=== PATIENT | male | born 1960 | race Caucasian/White ===

== ENCOUNTER → 2020-10-06 | Outpatient (CLI) | payer OTHER | LOC: SJCVCIMAG | PROVIDERS: ATTEND Internal Medicine | DX: R00.2 Palpitations (principal); E78.5 Hyperlipidemia, unspecified; G47.33 Obstructive sleep apnea (adult) (pediatric); Z87.891 Personal history of nicotine dependence; Z79.899 Other long term (current) drug therapy; F12.90 Cannabis use, unspecified, uncomplicated ==

== ENCOUNTER → 2021-04-11 | Outpatient (CLI) | payer OTHER ==
[~2021-04-11] MED LIST: CHOLECALCIFEROL1 GM PO; DAILY VITAMIN1 EAC6 PO; TOPROL XL50 MG PO; XARELTO20 MG PO
[2021-04-11 09:32] LABS: ABSOLUTE NEUTROPHILS 1.9 thou/uL (1.4-8.2); BASOPHILS 0.7 % (0.0-2.0); EOSINOPHILS 1.7 % (0.0-3.0); HEMATOCRIT 42.9 % (42.0-52.0); LYMPHOCYTES 48.5 % (24.0-44.0); MCH 29.3 pg (26.0-34.0); MCHC 32.5 g/dL (28.0-37.0); MCV 90.1 fL (80.0-100.0); MONOCYTES 8.8 % (1.0-8.0); PLATELET COUNT 205 thou/uL (150-400); POLYS 40.3 % (36.0-66.0); RBC 4.76 mil/uL (4.50-6.00); RDW 13.8 % (10.5-14.5); WBC 4.7 thou/uL (4.0-11.0)
[2021-04-11 09:51] LABS: ALBUMIN 3.6 g/dL (3.4-5.0); CALCIUM 8.9 mg/dL (8.5-10.1); CREATININE 0.8 mg/dL (0.7-1.3); POTASSIUM 4.5 mmol/L (3.5-5.1); TOTAL BILIRUBIN 0.5 mg/dL (0.2-1.0); TOTAL PROTEIN 6.9 g/dL (6.4-8.2)
== END ==
LOC: CAT 08:47
PROVIDERS: ATTEND Internal Medicine Cardiovascular Disease
DX: I25.10 Atherosclerotic heart disease of native coronary artery without angina pectoris (principal); I48.91 Unspecified atrial fibrillation

== ENCOUNTER 2021-04-13 06:31 | Outpatient (CLI) | payer OTHER ==
[~2021-04-13] VITALS: Ht 182.9 cm; Wt 91.8 kg
[2021-04-13 07:39] LABS: ABSOLUTE NEUTROPHILS 1.7 thou/uL (1.4-8.2); BASOPHILS 0.6 % (0.0-2.0); EOSINOPHILS 1.7 % (0.0-3.0); HEMOGLOBIN 14.3 gm/dL (14.0-18.0); LYMPHOCYTES 51.1 % (24.0-44.0); MCH 29.4 pg (26.0-34.0); MCHC 33.3 g/dL (28.0-37.0); MCV 88.5 fL (80.0-100.0); MONOCYTES 6.6 % (1.0-8.0); PLATELET COUNT 203 thou/uL (150-400); RBC 4.86 mil/uL (4.50-6.00); RDW 13.5 % (10.5-14.5); WBC 4.2 thou/uL (4.0-11.0)
[2021-04-13 07:41] VITALS: BP 111/71
[2021-04-13 07:44] LABS: CALCIUM 8.7 mg/dL (8.5-10.1); CREATININE 0.8 mg/dL (0.7-1.3); POTASSIUM 3.9 mmol/L (3.5-5.1)
[2021-04-13 07:49] LABS: ALBUMIN 3.5 g/dL (3.4-5.0); TOTAL BILIRUBIN 0.4 mg/dL (0.2-1.0); TOTAL PROTEIN 6.8 g/dL (6.4-8.2)
[2021-04-13 07:55] LABS: APTT 29.1 Seconds (24.5-32.8); INR 0.98; PROTIME 10.7 Seconds (10.5-12.1)
[2021-04-13] MEDS ORDERED: TOPROL XL50 MG PO (08:04)
[2021-04-13] MEDS ORDERED: XARELTO20 MG PO (08:04)
[2021-04-13] MEDS ORDERED: DAILY VITAMIN1 EAC6 PO (08:08)
[2021-04-13] MEDS ORDERED: CHOLECALCIFEROL1 GM PO (08:09)
--- NOTE | 2021-04-13 14:08 | NUR ---
PT COMPLAINED OF A "GAS BUBBLE FEELING" AROUND HIS HEART, RATED A 2. MD NOTIFIED AND AN EKG ORDERED. VSS.
[2021-04-13 15:15] VITALS: BP 138/79
--- NOTE | 2021-04-13 15:37 | EKG ---
[address] [address] ELECTROCARDIOGRAM REPORT Name: ARTHUR ORTIZ Romero Room #: 211-P [facility]#: [id number] Admission: 04/13/21 Attend Phys: Arsenio Torre MD Discharge: Date of : 58 Report #: [id number] [facility] Test Date: 2021-04-13 Test Time: 14:20:52 Pat Name: ARTHUR ORTIZ Department: Room: Gender: Director Of Training: : 1960 Requested By: Arsenio Torre Order Number: [id number] : El Issa Measurements Intervals [place] Rate: 91 P: 65 CO: 154 QRS: 21 QRSD: 102 T: 51 QT: 372 QTc: 458 Interpretive Statements Sinus rhythm No previous ECG available for comparison Electronically Signed On 04-13-2021 15:37:25 CDT by El Issa [email or web address] <ELECTRONICALLY SIGNED> By: El Issa MD, [facility] 04/13/21 1537 1420 1420 El Issa MD, FACC /EPI
--- NOTE | 2021-04-13 19:30 | NUR ---
PT ARRIVED 1515. NO BLEEDING FROM GROIN SITES. WILL CONTINUE POC.
[2021-04-13 20:06] VITALS: BP 115/76
[2021-04-13 23:19] VITALS: BP 116/69
--- NOTE | 2021-04-14 02:48 | NUR ---
PT IS ALERT AND OREINTED X4. LUNGS ARE CLEAR ON ROOM AIR. UP TO BATHROOM VOIDING. RIGHT AND LEFT GROIN SITE IS CLEAN DRY AND INTACT NO BRUSING NOTED EITHER. DENIES ANY COMPLAINTS OF PAIN NOTED. WILL CONTINUE TO MONITOR AND ASSESS PER NURSING AT THIS TIME.NO ISSUES NOTED. CALL LIGHT WITHIN REACH
[2021-04-14 04:47] VITALS: BP 119/73
[2021-04-14 07:37] VITALS: BP 131/85
[2021-04-14 08:51] VITALS: BP 131/85
--- NOTE | 2021-04-14 09:26 | NUR ---
Assumed care of pt this AM. Pt is A&O x4, on RA. Sinus rhythm on the monitor. Plans to discharge home today after afib ablation yesterday. Pt denies any needs at this time.
[2021-04-14 10:58] VITALS: BP 131/85
--- NOTE | 2021-04-18 12:49 | P ---
[facility] [place] [address] PROCEDURE REPORT Name: ARTHUR ORTIZ [id number] Admission: 04/13/21 Attend Phys: Arsenio Torre MD Discharge: 04/14/21 Date of : 58 Report #: [id number] THIS REPORT FOR: cc: PRANAY MARSH MD, OSSAMA MD Couchonnal, Luis F. MD ~ DATE OF SERVICE: 04/13/2021 ATRIAL FIBRILLATION ABLATION PREOPERATIVE DIAGNOSIS: Atrial fibrillation POSTOPERATIVE DIAGNOSIS: Atrial fibrillation. HISTORY: The patient is a 60-year-old with a history of recurrent AFib, here for ablation. PROCEDURES PERFORMED: 1. Atrial fibrillation ablation, CPT code 01017. 2. 3D mapping, CPT code 09879. 3. Intracardiac echo, CPT code 38287. 4. Focal ablation, CPT code 70592. DESCRIPTION OF PROCEDURE: The patient underwent informed consent. He was then brought to the EP laboratory in a fasting and sedated state and placed under general anesthesia. I obtained access to the right femoral vein x3, placing an 8, 9 and 7-Palestinian short sheath. In the left femoral vein, I placed a 9-Palestinian short sheath. Next, under fluoroscopy, a decapolar catheter was placed easily in the coronary sinus and ICE catheter was placed in the right atrium. The patient's CT scan showed that he had 2 left and 3 right pulmonary veins. Next, the patient was systemically heparinized and a transseptal was performed using an SL1 sheath and a [place] needle. This was straightforward. I then exchanged over for the cryosheath, placed a Lasso catheter in the left atrium and created a detailed 3D voltage map of the left atrium. Next, the ablation was initiated. I performed a 100 seconds followed by 4-minute freeze in the left superior pulmonary vein and this resulted in isolation of the left inferior pulmonary vein under a two 4-minute freezes and isolated during the second freeze at 64 seconds. The right superior pulmonary vein underwent a 4-minute freeze resulting in isolation in 82 seconds, but then reconnected. A second 4-minute freeze was performed and resulted in isolation in 94 seconds. The right inferior pulmonary vein underwent a 3-minute freeze followed by a 4-minute freeze which did not result in isolation. I therefore took the balloon into the right middle pulmonary vein and this resulted in isolation of both veins at 90 seconds. This final freeze was of 270 seconds duration. Next, I created a repeat map and it shows a left inferior pulmonary vein had reconnected and the right inferior pulmonary vein still had some signals along the anterior aspect [address] [address] PROCEDURE REPORT Name: ARTHUR ORTIZ Room #: DEP [facility]#: [id number] Admission: 04/13/21 Attend Phys: Arsenio Torre MD Discharge: 04/14/21 Date of : 58 Report #: [id number] of the inferior vein. Therefore, I went into the left inferior pulmonary vein, performed another 4-minute freeze which resulted in isolation in 60 seconds. The right inferior pulmonary vein underwent an additional 4-minute freeze which resulted in isolation. As such, the right sided procedure was concluded. Atrial flutter ablation: Next, the patient was prepared for atrial flutter ablation. Preablation, the transisthmus conduction time was 60 milliseconds. Ablation was performed using an 8 mm ablation catheter via a ramp sheath. The ramp sheath was placed via 14-Palestinian short sheath after exchanging the cryosheath. Ablation was performed at 60 browne and 60 degrees. There was a deep pouch in the mid isthmus. Reed were slightly lower at this area, but moving medial and lateral to it, the reed were improved. Post-ablation, the transisthmus conduction time was 130 milliseconds. As such, all catheters and sheaths were pulled. Hemostasis was obtained. Intracardiac ultrasound verified there is no pericardial effusion. CONCLUSIONS: 1. Successful AFib ablation with isolation of the pulmonary veins. 2. Successful atrial flutter ablation with bidirectional block. <ELECTRONICALLY SIGNED> By: Arsenio Torre MD 04/18/21 1249 1543 0056 Arsenio Torre MD /nt
== END 2021-04-14 11:01 | disposition home or self-care (01) ==
LOC: CATH 06:31 → 2N 06:31 → CATH 06:42
PROVIDERS: ATTEND Internal Medicine Cardiovascular Disease
DX: I48.91 Unspecified atrial fibrillation (principal); I48.92 Unspecified atrial flutter; I49.9 Cardiac arrhythmia, unspecified; E78.5 Hyperlipidemia, unspecified; G47.33 Obstructive sleep apnea (adult) (pediatric); Z98.890 Other specified postprocedural states; Z79.899 Other long term (current) drug therapy; Z87.891 Personal history of nicotine dependence; Z79.01 Long term (current) use of anticoagulants; Z20.822 Contact with and (suspected) exposure to COVID-19
CPT/HCPCS: 10797; 62110; 62900; 65020; 70005

== ENCOUNTER 2021-08-03 05:32 | Emergency (ER) | payer OTHER ==
[~2021-08-03] VITALS: Ht 182.9 cm; Wt 93.0 kg
[2021-08-03 06:20] LABS: ABSOLUTE NEUTROPHILS 1.9 thou/uL (1.4-8.2); BASOPHILS 1.1 % (0.0-2.0); EOSINOPHILS 1.7 % (0.0-3.0); HEMATOCRIT 43.5 % (42.0-52.0); HEMOGLOBIN 14.7 gm/dL (14.0-18.0); LYMPHOCYTES 45.6 % (24.0-44.0); MCH 29.9 pg (26.0-34.0); MCHC 33.7 g/dL (28.0-37.0); MCV 88.6 fL (80.0-100.0); MONOCYTES 7.5 % (1.0-8.0); PLATELET COUNT 213 thou/uL (150-400); POLYS 44.1 % (36.0-66.0); RBC 4.91 mil/uL (4.50-6.00); WBC 4.2 thou/uL (4.0-11.0)
[2021-08-03 06:30] LABS: CREATININE 0.8 mg/dL (0.7-1.3)
[2021-08-03 07:03] VITALS: BP 140/80
--- NOTE | 2021-08-03 08:18 | EKG ---
[place] [address] [facility] [place] [address] ELECTROCARDIOGRAM REPORT Name: ARTHUR ORTIZ Room #: DEP Mattie#: [id number] Admission: 08/03/21 Attend Phys: Discharge: 08/03/21 Date of : 58 Report #: [id number] [facility] ED Test Date: 2021-08-03 Test Time: 05:40:30 Pat Name: ARTHUR ORTIZ Department: Room: Gender: M Embedded Software Programmer: ELIANA : 1960 Requested By: Elgin Mcarthur Order Number: [id number] MD: Zachary Erazo Measurements Intervals [place] Rate: 78 P: -9 NV: 137 QRS: 35 QRSD: 95 T: 50 QT: 368 QTc: 420 Interpretive Statements Sinus rhythm Baseline wander in lead(s) V1,V3 Compared to ECG 04/13/2021 14:20:52 No significant changes Electronically Signed On 08-03-2021 8:18:02 COUNTER TENDER by Zachary Erazo [email or web address] <ELECTRONICALLY SIGNED> By: Zachary Erazo MD, [facility] 08/03/21 0818 0540 0540 Zachary Erazo MD, FACC /EPI
== END 2021-08-03 07:06 | disposition home or self-care (01) ==
LOC: ER 05:32
PROVIDERS: Emergency Medicine
DX: R06.00 Dyspnea, unspecified (principal); Z20.822 Contact with and (suspected) exposure to COVID-19; Z79.899 Other long term (current) drug therapy